=== PATIENT | male | born 1990 | race Caucasian/White ===

== ENCOUNTER 2025-10-05 19:41 | Emergency (ER) | payer OTHER, SELFPAY ==
[2025-10-05 19:45] VITALS: BP 145/75; PULSE 69; RESP 16; TEMP 37.1; O2SAT 96; BMI 40.3
--- NOTE | 2025-10-05 20:03 | ED_ITS ---
Discharge Plan Disposition Patient Disposition: Home, Self-Care Condition: Good Referrals Follow up/Referrals: Provider,Referral, [Primary Care Provider, Medical] - See instructions Activity Restrictions/Add. Instructions Additional Instructions/Restrictions: Can clean the wound with soap and water at home. The stitches will dissolve on their own. Keep the wound covered with a Band-Aid at all times until the stitches dissolve. Return for any signs of infection including puslike drainage, severe swelling of the finger, severe pain or if you have any other acute concerns. Clinical Impressions Clinical Impression: Laceration Instructions Patient Instructions: DI for Laceration Repair Print Language Print Language: Italian Discharge ED Provider: Aurelia Jon Adult HPI General Chief complaint: Wound/Laceration Stated complaint: AO 10-05 cut left hand, middle finger Time Seen by Provider: 10/05/25 20:03 Mode of Arrival: Ambulatory Source of Information: Patient Description of Symptoms (Recalled from ER Triage Doc. by RN): About 10 minutes ago pt was cutting rope with a kitchen knife and slipped and cut his left middle finger History of Present Illness HPI narrative: Patient is a 35-year-old male with no significant past medical history who presents to the emergency department with a laceration to his left middle fing er. Patient states that he cut it with a clean knife at home. Patient states his tetanus is up-to-date. Patient states that he was concerned for the amount of bleeding. Patient has no sensory loss motor loss. Related Data Allergies Allergy/AdvReac Type Severity Reaction Status Date / Time No Known Allergies Allergy Verified 10/05/25 19:50 [facility] Disclaimer: The information contained in this section may have been updated after the patient was seen, as this information can be updated by other users. Social History Smoking Status: Current every day smoker alcohol intake: never current occupational status: other Travel in the last 8 weeks?: None ROS Obtained: Yes All systems reviewed & no additional complaints except as documented and Yes Systems reviewed as appropriate & no additional complaints except as documented Physical Exam General General appearance: alert and in no apparent distress Head Head exam: atraumatic, normocephalic and normal inspection Eye Eye exam: Present normal appearance, PERRL and EOMI; Absent scleral icterus ENT ENT exam: Present normal exam and normal external ear exam Neck Neck exam: Present normal inspection and full ROM Chest Chest inspection: Present normal inspection and symmetric chest wall rise Respiratory Respiratory exam: Present normal lung sounds bilaterally; Absent respiratory distress or wheezes Cardiovascular Cardiovascular exam: Present regular rate, normal rhythm and normal heart sounds Abdominal Exam Abdominal exam: Present soft and distention; Absent tenderness, guarding or rebound Extremities Exam Extremities exam: Present normal inspection and full ROM Back Exam Back exam: Present normal inspection and full ROM Neurological Exam Neurological exam: Present alert and oriented X3 Psychiatric Psychiatric exam: Present normal affect and normal mood Skin Skin exam: Present warm, dry and other (1 cm laceration to his left middle finger, no active bleeding, neurovascularly intact, 2+ radial pulse) Medical Decision Making Medical Records Medical records reviewed: Yes I reviewed the patient's medical records. Screening: Per USPSTF and CDC recommendations, given the prevalence of disease in our region, it is our hospital?s policy to screen for HIV and viral Hepatitis for all patients aged 18 and over and those with ongoing risk factors. Eladio Inquiry Pt receiving controlled substance: No Vital Signs: 10/05/25 19:45 10/05/25 21:16 Temperature 98.7 F 98.7 F Temperature Source Temporal Artery Scan Oral Pulse Rate 71 Pulse Rate [Right] 69 Respiratory Rate 16 16 Blood Pressure 138/67 Blood Pressure [Right Arm] 145/75 H Blood Pressure Mean [Right Arm] 98 Blood Pressure Source Automatic Cuff Blood Pressure Source [Right Arm] Automatic Cuff Blood Pressure Position Sitting Blood Pressure Position [Right Arm] Sitting 02 Sat by Pulse Oximetry 96 Oxygen Delivery Method Room Air Room Air Lab Data Lab results reviewed: Yes I reviewed the patient's lab results. Orders (Tests/Meds): ED MEDICATIONS Discontinued Medications Generic Name Dose Route Start Last Admin Trade Name Inocencio PRN Reason Stop Dose Admin Lidocaine HCl 5 ml 10/05/25 20:49 10/05/25 21:06 Lidocaine 1% 10ml Mdv SUBCUT 10/05/25 20:50 5 ml ONCE ONE Administration Medical Decision Narrative: Is an otherwise healthy 35-year-old gentleman who presented to the emergency department with a laceration to his left hand. On arrival, patient was hemodynamically stable with unremarkable vital signs. Differential includes but not limited to: Laceration, vascular injury, nerve injury, fracture, amongst others. On exam, patient had a very superficial 1 cm laceration to his left middle fin bridgett. There is no active bleeding. Patient's wound was cleaned extensively. There was no concern for vascular injury, bleeding had stopped. Was neurovascular intact to low concern for neurovascular injury. Patient's laceration was very superficial low concern for underlying structure abnormalities or injuries. X-ray was not felt to be indicated. Patient was numbed and 2 dissolvable stitches were placed. Patient was given wound care instructions and patient was otherwise discharged home in stable condition. Patient's tetanus is already up-to-date therefore not given today. Procedures Laceration Laceration 1: Site: hand Side (If applicable): left Size (cm): 1 Description: linear Depth: simple, single layer Local Anesthetic: lidocaine 1% Amount of anesthesia used (mL): 5 Skin layer closed with: other (fast absorbing gut ) Size (cm): 5-0 Number of sutures: 2 Technique: simple, interrupted Critical Care Critical Care Time Critical Care Time: No
[2025-10-05] MEDS: LIDOCAINE 1% 10ML MDV 5 ML SUBCUT (21:06)
[2025-10-05 21:16] VITALS: BP 138/67; PULSE 71; RESP 16; TEMP 37.1; O2SAT 98
== END 2025-10-05 21:16 | disposition home or self-care (01) ==
PROVIDERS: Emergency Provider Student in an Organized Health Care Education/Training Program
DX: S61.213A Laceration without foreign body of left middle finger without damage to nail, initial encounter (principal)
CPT/HCPCS: 99282